=== PATIENT | female | born 1995 | race Caucasian/White ===

== ENCOUNTER 2018-11-28 11:55 | Emergency (ER) | payer OTHER | END 2018-11-28 14:58 | disposition home or self-care (01) | LOC: JERFT 11:55 ==

== ENCOUNTER 2019-01-13 07:57 | Emergency (ER) | payer OTHER ==
[2019-01-13 08:06] VITALS: TEMP 98.5; BMI 22.0
[2019-01-13 08:21] LABS: HCG,QUALITATIVE URINE Positive
[2019-01-13 08:22] LABS: EPI CELLS 2.1 /HPF (0-5/HPF); HYALINE CASTS 2 /lpf (0-8); PH,URINE 6.5 (5.0-8.0); URINE APPEARANCE CLOUDY; URINE BACTERIA 7236.1 /hpf (NEGATIVE); URINE BILIRUBIN NEGATIVE (NEGATIVE); URINE COLOR YELLOW; URINE GLUCOSE (UA) NEGATIVE (NEGATIVE); URINE KETONE NEGATIVE (NEGATIVE); URINE LEUK ESTERASE NEGATIVE (NEGATIVE); URINE NITRITE POSITIVE (NEGATIVE); URINE PROTEIN NEGATIVE (NEGATIVE); URINE RBC 6 /hpf (0-4); URINE UROBILINOGEN 0.2 mg/dL (0.2-1.0); URINE WBC 2 /hpf (0-5)
[2019-01-13] MEDS ORDERED: ONDANSETRON 4 MG/2 ML VIAL IVPUSH ONE (08:31)
[2019-01-13] MEDS ORDERED: SODIUM CHLORIDE 1,000 ML IV STA (08:31)
[2019-01-13] MEDS ORDERED: ONDANSETRON 4 MG/2 ML VIAL ONE (08:35)
[2019-01-13 08:48] VITALS: BP 109/60; PULSE 84
[2019-01-13 08:56] LABS: BASO % 0.8 % (0-2.0); EOS % 2.2 % (0-4.5); HEMATOCRIT 41.5 % (32.4-45.2); HEMOGLOBIN 13.6 GM/dL (10.7-15.3); LYMPH % 38.4 % (8-40); MCH 26.8 pg (25.7-33.7); MCHC 32.9 g/dl (32.0-36.0); MEAN CELL VOLUME 81.5 fl (80-96); MEAN PLT VOLUME 8.2 fl (7.5-11.1); MONO % 6.9 % (3.8-10.2); NEUT % 51.7 % (42.8-82.8); PLATELET COUNT 291 K/MM3 (134-434); RBC 5.09 M/mm3 (3.60-5.2); WHITE BLOOD COUNT 8.2 K/mm3 (4.0-10.0)
--- NOTE | 2019-01-13 09:03 | PDOC ---
History of Present Illness - General Chief Complaint: Lightheaded Stated Complaint: DIZZINESS Time Seen by Provider: 01/13/19 08:07 History Source: Patient Exam Limitations: No Limitations - History of Present Illness Initial Comments: 01/13/19 08:07 23-year-old female presents to ED with complaints of intermittent and dizziness worsen with standing over the past 2 days, nausea or vomiting, and mild dysuria. Patient states LMP was 12/03/2018. Patient denies medical history except for PCO S and denies any recent head injury, travel, illness, fever, or chills Timing/Duration: changing over time Severity: moderate Associated Symptoms: reports: loss of appetite, nausea/vomiting, other Past History - Travel Traveled outside of the country in the last 30 days: No Close contact w/someone who was outside of country & ill: No - Past Medical History Allergies/Adverse Reactions: Allergies Allergy/AdvReac Type Severity Reaction Status Date / Time No Known Allergies Allergy Verified 01/13/19 08:02 Home Medications: Ambulatory Orders Cephalexin [Keflex] 500 mg PO BID #14 capsule 01/13/19 Ondansetron HCl [Zofran] 4 mg PO TID PRN #12 tablet 01/13/19 COPD: No Diabetes: Yes (pre diabetic) - Surgical History Cholecystectomy: Yes - Suicide/Smoking/Psychosocial Hx Smoking History: Never smoked Hx Alcohol Use: No Drug/Substance Use Hx: No Substance Use Type: None Patient Lives Alone: No Lives with/in: spouse/SO Review of Systems - Review of Systems Able to Perform ROS?: Yes Constitutional: Yes: Weakness HEENTM: No: Symptoms Reported Respiratory: No: Symptoms reported Cardiac (ROS): Yes: Lightheadedness ABD/GI: Yes: Nausea, Poor Appetite, Poor Fluid Intake, Vomiting : Yes: Burning. No: Discharge Musculoskeletal: No: Symptoms Reported Integumentary: No: Symptoms Reported Neurological: Yes: Dizziness Endocrine: No: Symptoms Reported Hematologic/Lymphatic: No: Symptoms Reported *Physical Exam - Vital Signs Last Vital Signs Temp Pulse Resp BP Pulse Ox 98.5 F 58 L 16 111/69 99 01/13/19 08:05 01/13/19 08:47 01/13/19 08:05 01/13/19 08:47 01/13/19 08:05 - Physical Exam General Appearance: Yes: Nourished, Appropriately Dressed. No: Apparent Distress HEENT: negative: Pale Conjunctivae Neck: positive: Supple Respiratory/Chest: positive: Lungs Clear, Normal Breath Sounds. negative: Respiratory Distress, Accessory Muscle Use Cardiovascular: positive: Regular Rhythm, Regular Rate. negative: Murmur Gastrointestinal/Abdominal: positive: Soft. negative: Tenderness Extremity: positive: Normal Inspection Integumentary: positive: Normal Color, Warm, Moist Neurologic: positive: Motor Strength 5/5 (ambulatory) ED Treatment Course - LABORATORY CBC & Chemistry Diagram: 01/13/19 08:44 01/13/19 08:44 - ADDITIONAL ORDERS Additional order review: Laboratory Results 01/13/19 08:00 Urine Color Yellow Urine Appearance Cloudy Urine pH 6.5 Ur Specific [place] 1.022 Urine Protein Negative Urine Glucose (UA) Negative Urine Ketones Negative Urine Blood Negative Urine Nitrite Positive H Urine Bilirubin Negative Urine Urobilinogen 0.2 Ur Leukocyte Esterase Negative Urine WBC (Auto) 2 Urine RBC (Auto) 6 Urine Casts (Auto) 2 U Epithel Cells (Auto) 2.1 Urine Bacteria (Auto) 7236.1 Urine HCG, Qual Positive - Medications Given in the ED: ED Medications Discontinued Medications Generic Name Dose Route Start Last Admin Trade Name Freq PRN Reason Stop Dose Admin Ondansetron HCl 4 mg 01/13/19 08:31 01/13/19 08:48 Zofran Injection IVPUSH 01/13/19 08:32 4 mg ONCE ONE Administration Medical Decision Making - Medical Decision Making 01/13/19 08:09 CC: Dizziness worsened with standing, nausea with vomiting for the past 2 days intermittently poor by mouth intake and mild dysuria. LMP 6/4 Exam: Patient found to be orthostatic Plan: Labs, urine, IV fluids and Zofran 01/13/19 09:07 Laboratory Tests 01/13/19 08:00 Urine Nitrite Positive H Ur Leukocyte Esterase Negative Urine WBC (Auto) 2 Urine HCG, Qual Positive Patient ordered for beta ultrasound and we will consider ultrasound once labs have been reviewed 01/13/19 11:33 Laboratory Tests 01/13/19 01/13/19 08:44 08:44 WBC 8.2 Hgb 13.6 Hct 41.5 Plt Count 291 Absolute Neuts (auto) 4.2 Sodium 138 Potassium 5.6 H Chloride 106 Carbon Dioxide 30 Anion Gap 2 L BUN 20.1 H Creatinine 0.9 Est GFR (CKD-EPI)AfAm 105.19 Random Glucose 109 H Calcium 9.8 Magnesium 2.2 Total Bilirubin 0.4 AST 13 L Alkaline Phosphatase 62 Beta HCG, Quant 37.1 Patient went to ultrasound and awaiting results. 01/13/19 11:56 Ultrasound states that thickening endometrium at 1.6 cm identified. There is no sonographic evidence of viable intrauterine gestation. If very early is suspected please correlate with repeat beta hCG and ultrasound is recommended. Patient states feeling much better . *DC/Admit/Observation/Transfer Diagnosis at time of Disposition: UTI (urinary tract infection), as incidental finding - Discharge Dispostion Disposition: HOME Condition at time of disposition: Good - Prescriptions Prescriptions: Cephalexin [Keflex] 500 mg PO BID #14 capsule Ondansetron HCl [Zofran] 4 mg PO TID PRN #12 tablet PRN Reason: Nausea And/Or Vomiting - Referrals - Patient Instructions Printed Discharge Instructions: DI for Urinary Tract Infection (UTI) Additional Instructions: Take antibiotics as prescribed. Please eat small frequent meals and drink plenty of fluids. If symptoms of nausea recur please take Zofran as needed for discomfort. Please follow-up in 4 days for repeat beta hCG and ultrasound either with your EXPELLER OPERATOR or ED. - Post Discharge Activity
[2019-01-13 09:28] LABS: ALBUMIN 4.1 g/dl (3.4-5.0); BILIRUBIN,TOTAL 0.4 mg/dL (0.2-1); BLOOD UREA NITROGEN 20.1 mg/dL (7-18); CALCIUM 9.8 mg/dL (8.5-10.1); CREATININE 0.9 mg/dL (0.55-1.3); MAGNESIUM 2.2 mg/dL (1.8-2.4); POTASSIUM 5.6 mmol/L (3.5-5.1); TOT PROT 8.1 g/dl (6.4-8.2)
== END 2019-01-13 12:26 | disposition home or self-care (01) ==
LOC: JER 07:57
PROC: 3E033GC Introduction of Other Therapeutic Substance into Peripheral Vein, Percutaneous Approach (ICD-10-PCS; principal; 2019-01-13)
DX: O26.891 Other specified pregnancy related conditions, first trimester (principal); O23.41 Unspecified infection of urinary tract in pregnancy, first trimester; Z3A.01 Less than 8 weeks gestation of pregnancy
CPT/HCPCS: 36415; 76817-TC; 80053; 81003; 83735; 84702; 84703; 85025; 87086; 87186; 96374; 99283-25; J7030

== ENCOUNTER 2019-02-13 16:49 | Emergency (ER) | payer OTHER | END 2019-02-13 20:29 | disposition home or self-care (01) | LOC: JER 16:49 ==

== ENCOUNTER 2019-04-15 11:22 | Emergency (ER) | payer OTHER ==
[2019-04-15 11:48] VITALS: BP 120/51; PULSE 84; TEMP 99.2; BMI 29.0
--- NOTE | 2019-04-15 12:14 | PDOC ---
History of Present Illness - General Chief Complaint: Cold Symptoms Stated Complaint: 16WKS/ FEVER Time Seen by Provider: 04/15/19 12:09 - History of Present Illness Initial Comments: 04/15/19 12:14 24-year-old female without comorbidities presents for evaluation of 1 day of fever body aches cough and sore throat Past History - Past Medical History Allergies/Adverse Reactions: Allergies Allergy/AdvReac Type Severity Reaction Status Date / Time No Known Allergies Allergy Verified 04/15/19 11:48 Home Medications: Ambulatory Orders Cephalexin [Keflex] 500 mg PO BID #14 capsule 01/13/19 Ondansetron HCl [Zofran] 4 mg PO TID PRN #12 tablet 01/13/19 Ondansetron HCl [Zofran] 4 mg PO TID PRN #30 tablet 02/13/19 Ranitidine HCl [Zantac] 150 mg PO BID #14 tablet 02/13/19 COPD: No Diabetes: Yes (pre diabetic) - Surgical History Cholecystectomy: Yes - Immunization History Immunization Up to Date: No - Psycho Social/Smoking Cessation Hx Smoking History: Never smoked Hx Alcohol Use: No Drug/Substance Use Hx: No Substance Use Type: None Review of Systems - Review of Systems Constitutional: Yes: Chills, Fever, Malaise, Night Sweats HEENTM: Yes: Throat Pain. No: Throat Swelling, Difficulty Swallowing Respiratory: Yes: Cough Musculoskeletal: Yes: Muscle Pain *Physical Exam - Vital Signs Last Vital Signs Temp Pulse Resp BP Pulse Ox 99.2 F 84 18 120/51 L 98 04/15/19 11:45 04/15/19 11:45 04/15/19 11:45 04/15/19 11:45 04/15/19 11:45 - Physical Exam Comments: 04/15/19 12:14 HEAD: NC/AT EYES: Conjuntiva clear Ears: Canals and TM's normal NOSE: No d/c THROAT: Moist mucous membrances, oral pharanx clear, uvula midline NECK: Supple without adenopathy CARDIAC: S1 S2 LUNGS: CTA Full and Equal breath sounds ABDOMEN: Soft NT ND MS: Full ROM in all joints without edema NEUROLOGIC: No gross sensory or motor deficits, NVID SKIN: Normal color and temperature no lesions or rashes Medical Decision Making - Medical Decision Making 04/15/19 12:51 Flu swab negative most likely viral upper respiratory infection supportive care with Tylenol and Motrin follow-up with PCP Discharge - Discharge Information Problems reviewed: Yes Clinical Impression/Diagnosis: Viral URI with cough Condition: Stable Disposition: HOME - Admission No - Follow up/Referral Referrals: Sierra Moss [Primary Care Provider] - - Patient Discharge Instructions Patient Printed Discharge Instructions: DI for Viral Upper Respiratory Infection -- Adult Additional Instructions: Your flu swab was negative today. Tylenol Motrin for fever. Return to the emergency room for worsening symptoms. Follow-up with your primary care physician in 1 to 2 days without fail for further evaluation and treatment options. - Post Discharge Activity
== END 2019-04-15 12:58 | disposition home or self-care (01) ==
LOC: JERFT 11:22
DX: O26.892 Other specified pregnancy related conditions, second trimester (principal); O98.512 Other viral diseases complicating pregnancy, second trimester; J06.9 Acute upper respiratory infection, unspecified; Z3A.16 16 weeks gestation of pregnancy
CPT/HCPCS: 87804; 99281-25

== ENCOUNTER 2019-05-21 22:51 | Emergency (ER) | payer OTHER ==
[2019-05-21 22:55] VITALS: BMI 29.9
[2019-05-22 00:24] LABS: EPI CELLS 18.6 /HPF (0-5/HPF); HYALINE CASTS 4 /lpf (0-8); PH,URINE >= 9.0 (5.0-8.0); URINE APPEARANCE TURBID; URINE BACTERIA 795.7 /hpf (NEGATIVE); URINE BILIRUBIN NEGATIVE (NEGATIVE); URINE COLOR YELLOW; URINE GLUCOSE (UA) NEGATIVE (NEGATIVE); URINE KETONE NEGATIVE (NEGATIVE); URINE LEUK ESTERASE TRACE (NEGATIVE); URINE NITRITE NEGATIVE (NEGATIVE); URINE PROTEIN NEGATIVE (NEGATIVE); URINE UROBILINOGEN 0.2 mg/dL (0.2-1.0); URINE WBC 16 /hpf (0-5)
--- NOTE | 2019-05-22 00:42 | PDOC ---
History of Present Illness - General Chief Complaint: Cold Symptoms Stated Complaint: FEVER Time Seen by Provider: 05/21/19 23:34 History Source: Patient Exam Limitations: No Limitations - History of Present Illness Initial Comments: 05/22/19 00:37 HISTORY OF PRESENT ILLNESS: Is a 24-year-old primigravida who presents to the emergency department for evaluation of 5 days of fevers, moist cough, sore throat and nasal congestion. Patient reports her was experiencing similar symptoms and they both started with symptoms on Sunday but the has recovered and is no longer exhibiting symptoms while this patient has. Patient reports that she did not get her flu shot earlier this year. Patient denies any chest pain, headaches, shortness of breath. She does endorse myalgias and has had one episode of dysuria today. 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 No recent travel or sick contacts. PAST MEDICAL HISTORY: Denies past medical history SURGICAL HISTORY: Denies ALLERGIES: No known drug allergies REVIEW OF SYSTEMS General/Constitutional: See HPI HEENT: See HPI Cardiovascular: See HPI Respiratory: See HPI Gastrointestinal: Denies nausea, vomiting, diarrhea or constipation. Denies rectal bleeding. Genitourinary: See HPI Musculoskeletal: See HPI Skin and breasts: Denies rash or easy bruising. Neurologic: Denies headache, vertigo, loss of consciousness, or loss of sensation. Psychiatric: Denies depression or anxiety. Endocrine: Denies increased thirst. Denies abnormal weight change. Hematologic/Lymphatic: Denies anemia, easy bleeding, or history of blood clots. Allergic/Immunologic: Denies hives or skin allergy. Denies latex allergy. PHYSICAL EXAM General Appearance: Well-appearing, appropriately dressed. No apparent distress , no intoxication. HEENT: EOMI, PERRLA, normal ENT inspection, normal voice, TMs normal. No conjunctival pallor. No photophobia, scleral icterus. Nasal congestion present. mildly erythematous oropharynx without tonsillar swelling, erythema or exudates present. Neck: Supple. Trachea midline. No tenderness, rigidity, carotid bruit, stridor , lymphadenopathy, or thyromegaly. Respiratory/Chest: Lungs CTAB. No shortness of breath, chest tenderness, respiratory distress, accessory muscle use. No crackles, rales, rhonchi, stridor , wheezing, dullness Cardiovascular: RRR. S1, S2. No JVD, murmur, bradycardia, tachycardia. Vascular Pulses: Dorsalis-Pedis (R): 2+, Dorsalis-Pedis (L): 2+ Gastrointestinal/Abdominal: Normal bowel sounds. Gravid abdomen soft, non- distended. No tenderness or rebound tenderness. No organomegaly, pulsatile mass , guarding, hernia, hepatomegaly, splenomegaly. Lymphatic: No adenopathy, tenderness. Musculoskeletal/Extremities: Normal inspection. FROM of all extremities, normal capillary refill. Pelvis Stable. No CVA tenderness. No tenderness to extremities, pedal edema, swelling, erythema or deformity. Integumentary: Appropriate color, dry, warm. No cyanosis, erythema, jaundice or rash Neurologic: oscillograph technician II-XII intact. Fully oriented, alert. Appropriate mood/affect. Motor strength 5/5. No appreciable EOM palsy, facial droop or sensory deficit. 05/22/19 00:40 Past History - Past Medical History Allergies/Adverse Reactions: Allergies Allergy/AdvReac Type Severity Reaction Status Date / Time No Known Allergies Allergy Verified 05/21/19 22:55 Home Medications: Ambulatory Orders Cephalexin [Keflex] 500 mg PO BID #14 capsule 01/13/19 Ondansetron HCl [Zofran] 4 mg PO TID PRN #12 tablet 01/13/19 Ondansetron HCl [Zofran] 4 mg PO TID PRN #30 tablet 02/13/19 Ranitidine HCl [Zantac] 150 mg PO BID #14 tablet 02/13/19 Cephalexin Monohydrate [Keflex -] 500 mg PO BID #14 capsule 05/22/19 COPD: No Diabetes: Yes (pre diabetic) - Surgical History Cholecystectomy: Yes - Immunization History Immunization Up to Date: No - Psycho Social/Smoking Cessation Hx Smoking History: Never smoked Hx Alcohol Use: No Drug/Substance Use Hx: No Substance Use Type: None *Physical Exam - Vital Signs Last Vital Signs Temp Pulse Resp BP Pulse Ox 99.7 F H 114 H 18 117/70 97 05/21/19 22:53 05/21/19 22:53 05/21/19 22:53 05/21/19 22:53 05/21/19 22:53 ED Treatment Course - ADDITIONAL ORDERS Additional order review: Laboratory Results 05/21/19 23:55 Urine Color Yellow Urine Appearance Turbid Urine pH >= 9.0 H D Ur Specific [place] 1.014 Urine Protein Negative Urine Glucose (UA) Negative Urine Ketones Negative Urine Blood Negative Urine Nitrite Negative Urine Bilirubin Negative Urine Urobilinogen 0.2 Ur Leukocyte Esterase Trace Urine WBC (Auto) 16 Urine Casts (Auto) 4 U Epithel Cells (Auto) 18.6 Urine Bacteria (Auto) 795.7 Medical Decision Making - Medical Decision Making 05/22/19 00:41 A/P: 24-year-old woman with 5 days of upper respiratory type illness and dysuria x1 episode today Although patient is outside the window for treatment of influenza she is currently and has not been immunized this year. I will test for influenza. Urinalysis, urine culture Reassess 05/22/19 00:42 Laboratory Tests 05/21/19 05/21/19 23:55 23:55 Urine Color Yellow Urine Appearance Turbid Urine pH >= 9.0 H D Ur Specific [place] 1.014 Urine Protein Negative Urine Glucose (UA) Negative Urine Ketones Negative Urine Blood Negative Urine Nitrite Negative Urine Bilirubin Negative Urine Urobilinogen 0.2 Ur Leukocyte Esterase Trace Urine WBC (Auto) 16 Urine Casts (Auto) 4 U Epithel Cells (Auto) 18.6 Urine Bacteria (Auto) 795.7 Influenza A (Rapid) Negative Influenza B (Rapid) Negative I will treat patient with Keflex 500 mg orally twice daily for the next 7 days. We will send patient to L&D for monitoring prior to discharge. I discussed the physical exam findings, ancillary test results and final diagnoses with the patient. I answered all of the patient's questions. The patient was satisfied with the care received and felt comfortable with the discharge plan and treatment plan. The patient will call their primary care physician within 24 hours to arrange follow-up and will return to the Emergency Department with any new, persistent or worsening symptoms. Discharge - Discharge Information Problems reviewed: Yes Clinical Impression/Diagnosis: Viral URI with cough Urinary tract infection Qualifiers: Urinary tract infection type: acute cystitis Hematuria presence: without hematuria Qualified Code(s): N30.00 - Acute cystitis without hematuria Condition: Stable Disposition: HOME - Admission No - Additional Discharge Information Prescriptions: Cephalexin Monohydrate [Keflex -] 500 mg PO BID #14 capsule - Follow up/Referral Referrals: Gely Giles CNM [Primary Care Provider] - - Patient Discharge Instructions Additional Instructions: Rest, drink lots of fluids: Teas, water, soups Avoid contact with others until fevers and symptoms resolved Lots of handwashing and good hygiene Continue [id number] medications for symptomatic relief Tylenol for fever and pain Continue all of antibiotics until completed Followup with [facility] in one week for repeat urinalysis/reevaluation Return to emergency department for worsened symptoms, fevers, dehydration - Post Discharge Activity
[2019-05-22 00:47] LABS: URINE RBC 6.4 /hpf (0-4)
[2019-05-22 01:07] VITALS: BP 118/77; PULSE 110; TEMP 99.4
== END 2019-05-22 01:07 | disposition home or self-care (01) ==
LOC: JER 22:51
DX: J06.9 Acute upper respiratory infection, unspecified (principal); R05 Cough; N30.00 Acute cystitis without hematuria
CPT/HCPCS: 81003; 87086; 87804; 99283-25

== ENCOUNTER 2019-07-07 14:02 | Emergency (ER) | payer OTHER ==
--- NOTE | 2019-07-07 14:11 | PDOC ---
Rapid Medical Evaluation Chief Complaint: Labor Assessment Medical Evaluation: Allergies Allergy/AdvReac Type Severity Reaction Status Date / Time No Known Allergies Allergy Verified 05/21/19 22:55 I have performed a brief in-person evaluation of this patient. The patient presents with a chief complaint of: 28 weeks preg, c/o lower abd/ back pressure x 4 days; denies vag bleeding Pertinent physical exam findings: Gravid abdomen, in NAD I have ordered the following: Nothing; patient will sent to L&D for assessment The patient will proceed to the ED for further evaluation. 07/07/19 14:10
[2019-07-07 14:12] VITALS: BMI 30.9
[2019-07-07 15:31] VITALS: BP 121/77; PULSE 102; TEMP 99
--- NOTE | 2019-07-07 16:07 | PN ---
Ante-Partal Exam - Subjective Subjective: Patient feeling cramps, no LOF, no VB, +FM. She reports nasal congestion, pelvic pressure, body aches Vital Signs: Vital Signs Temperature 99.0 F 07/07/19 15:14 Pulse Rate 102 H 07/07/19 15:14 Respiratory Rate 18 07/07/19 15:14 Blood Pressure 121/77 07/07/19 15:14 O2 Sat by Pulse Oximetry (%) 100 07/07/19 14:08 Bleeding: No Headache: No Visual changes: No Right upper quadrant pain: No - Contractions Contractions: No Intensity: Unaware Monitor Mode: External - Exam during Labor Heart Rate: 150 Variability: Moderate Category: I Monitor Accelerations: Present Monitor Decelerations: None Exam: Vaginal Dilatation (cm): 0 Effacement (%): 0 Amniotic Membrane Status: Intact Station: -3 Remarks: posterior cervix - Assessment/Plan Assessment/Plan: 24 y/o G1 @ 28+wks, not in active PTL, nasal congestion, stable vitals, reassuring status. Patient has + Ux early in the and denies taking Abx previously -FLu Swab -UA -PO fluids
[2019-07-07 16:56] LABS: EPI CELLS 25.6 /HPF (0-5/HPF); HYALINE CASTS 8 /lpf (0-8); PH,URINE 7.5 (5.0-8.0); URINE APPEARANCE CLOUDY; URINE BACTERIA 1666.6 /hpf (NEGATIVE); URINE BILIRUBIN NEGATIVE (NEGATIVE); URINE COLOR YELLOW; URINE GLUCOSE (UA) NEGATIVE (NEGATIVE); URINE KETONE NEGATIVE (NEGATIVE); URINE LEUK ESTERASE 1+ (NEGATIVE); URINE NITRITE NEGATIVE (NEGATIVE); URINE PROTEIN TRACE (NEGATIVE); URINE RBC 2 /hpf (0-4); URINE WBC 44 /hpf (0-5)
[2019-07-07 17:16] LABS: URINE CRYSTALS FEW /hpf
--- NOTE | 2019-07-07 17:30 | PN ---
Progress Note (short form) - Note Progress Note: Flu swab is negative and UA reviewed. Stable maternal and reassuring condition. Keflex prescribed and antepartum/PTL precautions previously discussed with patient. -D/C -F/U outpatient -return PRN -Sono tomorrow as scheduled as per patient
== END 2019-07-07 17:57 | disposition home or self-care (01) ==
LOC: JER 14:02
DX: O26.893 Other specified pregnancy related conditions, third trimester (principal); R10.30 Lower abdominal pain, unspecified; Z3A.28 28 weeks gestation of pregnancy
CPT/HCPCS: 81003; 87804; 99281-25

== ENCOUNTER 2020-07-21 16:21 | Emergency (ER) | payer OTHER ==
[2020-07-21 16:38] VITALS: TEMP 98; BMI 27.3
[2020-07-21 18:29] LABS: BASO % 0.5 % (0-2.0); HEMATOCRIT 40.5 % (32.4-45.2); HEMOGLOBIN 13.1 GM/dL (10.7-15.3); LYMPH % 45.1 % (8-40); MCH 26.3 pg (25.7-33.7); MCHC 32.4 g/dl (32.0-36.0); MEAN CELL VOLUME 81.2 fl (80-96); MEAN PLT VOLUME 8.3 fl (7.5-11.1); MONO % 8.3 % (3.8-10.2); NEUT % 44.1 % (42.8-82.8); PLATELET COUNT 277 K/MM3 (134-434); RBC 4.99 M/mm3 (3.60-5.2); RDW 14.7 % (11.6-15.6)
[2020-07-21] MEDS ORDERED: IBUPROFEN 400 MG TABLET (FP) PO ONE ×2 (18:30→18:52)
[2020-07-21 19:25] LABS: EPI CELLS 6 /uL (0-25.1); HCG,QUALITATIVE URINE Negative; HYALINE CASTS 0 /uL (0-3.1); PH,URINE 6.5 (5.0-8.0); URINE APPEARANCE CLEAR; URINE BACTERIA 5281 /uL (0-1359); URINE BILIRUBIN NEGATIVE (NEGATIVE); URINE COLOR YELLOW; URINE GLUCOSE (UA) NEGATIVE (NEGATIVE); URINE KETONE NEGATIVE (NEGATIVE); URINE LEUK ESTERASE NEGATIVE (NEGATIVE); URINE NITRITE POSITIVE (NEGATIVE); URINE PROTEIN NEGATIVE (NEGATIVE); URINE RBC 11 /uL (0-23.9); URINE UROBILINOGEN 0.2 mg/dL (0.2-1.0); URINE WBC 10 /uL (0-25.8)
[2020-07-21 20:08] LABS: POTASSIUM 4.6 mmol/L (3.5-5.1)
[2020-07-21 20:11] LABS: CALCIUM 9.2 mg/dL (8.5-10.1)
[2020-07-21 20:12] LABS: BLOOD UREA NITROGEN 14.7 mg/dL (7-18)
[2020-07-21 20:15] LABS: CREATININE 0.7 mg/dL (0.55-1.3)
[2020-07-21 20:17] LABS: BILIRUBIN,TOTAL 0.6 mg/dL (0.2-1); TOT PROT 7.6 g/dl (6.4-8.2)
[2020-07-21 21:04] VITALS: BP 108/62; PULSE 57
== END 2020-07-21 20:45 | disposition home or self-care (01) ==
LOC: JER 16:21
DX: N93.9 Abnormal uterine and vaginal bleeding, unspecified (principal)
CPT/HCPCS: 36415; 80053; 81003; 84703; 85025; 87086; 87186; 99283-25

== ENCOUNTER 2020-09-02 12:26 | Emergency (ER) | payer OTHER ==
[2020-09-02 12:34] VITALS: BP 113/66; PULSE 71; TEMP 99; BMI 31.1
[2020-09-02 14:05] LABS: PH,URINE 5.5 (5.0-8.0); URINE APPEARANCE CLEAR; URINE BILIRUBIN NEGATIVE (NEGATIVE); URINE COLOR YELLOW; URINE GLUCOSE (UA) NEGATIVE (NEGATIVE); URINE KETONE NEGATIVE (NEGATIVE); URINE LEUK ESTERASE NEGATIVE (NEGATIVE); URINE NITRITE NEGATIVE (NEGATIVE); URINE PROTEIN NEGATIVE (NEGATIVE); URINE UROBILINOGEN 0.2 mg/dL (0.2-1.0)
== END 2020-09-02 14:49 | disposition home or self-care (01) ==
LOC: JERFT 12:26 → JER 12:26 → JERFT 14:49
DX: R11.0 Nausea (principal)
CPT/HCPCS: 36415; 81003; 84702; 87086; 99283-25; C9803; U0003

== ENCOUNTER 2020-12-05 21:05 | Emergency (ER) | payer OTHER ==
[2020-12-05 21:43] VITALS: BMI 32.1
[2020-12-06 00:19] VITALS: BP 120/75; PULSE 75; TEMP 97.8
== END 2020-12-06 00:11 | disposition home or self-care (01) ==
LOC: JER 21:05
DX: H60.92 Unspecified otitis externa, left ear (principal)
CPT/HCPCS: 99282-25

== ENCOUNTER 2022-06-24 21:38 | Emergency (ER) | payer OTHER ==
[2022-06-24 21:48] VITALS: BP 114/75; PULSE 95; RESP 20; BMI 33.6
[2022-06-24 22:19] VITALS: TEMP 99.8
[2022-06-24] MEDS ORDERED: ACETAMINOPHEN 500 MG TABLET (FP) PO ONE (22:19)
[2022-06-24] MEDS ORDERED: ACETAMINOPHEN 500 MG TABLET (FP) ONE (22:23)
== END 2022-06-24 22:56 | disposition home or self-care (01) ==
LOC: JERFT 21:38
DX: U07.1 COVID-19 (principal)
CPT/HCPCS: 0241U-QW; 93005; 93010; 99284-25

== ENCOUNTER 2023-07-18 09:21 | Emergency (ER) | payer OTHER ==
[2023-07-18 09:27] VITALS: BMI 34.0
[2023-07-18] MEDS ORDERED: KETOROLAC TROMETHAMINE 30 MG/1 ML VIAL IM ONE (09:49)
[2023-07-18] MEDS ORDERED: KETOROLAC TROMETHAMINE 30 MG/1 ML VIAL ONE (09:52)
[2023-07-18] MEDS ORDERED: ACETAMINOPHEN 500 MG TABLET (FP) PO ONE (09:55)
[2023-07-18] MEDS ORDERED: ONDANSETRON *ODT* 4 MG TABLET ONE (09:59)
[2023-07-18] MEDS ORDERED: ACETAMINOPHEN 500 MG TABLET (FP) ONE (09:59)
[2023-07-18] MEDS ORDERED: ONDANSETRON *ODT* 4 MG TABLET SL ONE (09:59)
[2023-07-18 11:31] VITALS: BP 103/65; PULSE 95; RESP 20; TEMP 99.8
== END 2023-07-18 11:53 | disposition home or self-care (01) ==
LOC: JERFT 09:21
PROC: 3E0233Z Introduction of Anti-inflammatory into Muscle, Percutaneous Approach (ICD-10-PCS; principal; 2023-07-18)
DX: R05.9 Cough, unspecified (principal); R11.0 Nausea; R50.9 Fever, unspecified; R63.0 Anorexia; J10.1 Influenza due to other identified influenza virus with other respiratory manifestations; Z20.822 Contact with and (suspected) exposure to COVID-19
CPT/HCPCS: 0241U-QW; 71046-TC-FY; 99284-25; Q0162

== ENCOUNTER 2023-09-11 15:41 | Emergency (ER) | payer OTHER ==
[2023-09-11 15:53] VITALS: RESP 18; BMI 33.6
[2023-09-11 17:18] LABS: BASO % 0.7 % (0-2.0); EOS % 2.3 % (0-4.5); HEMATOCRIT 39.6 % (32.4-45.2); HEMOGLOBIN 12.7 GM/dL (10.7-15.3); LYMPH % 38.7 % (8-40); MCH 26.4 pg (25.7-33.7); MCHC 32.1 g/dl (32.0-36.0); MEAN CELL VOLUME 82.4 fl (80-96); MEAN PLT VOLUME 8.3 fl (7.5-11.1); MONO % 7.3 % (3.8-10.2); PLATELET COUNT 315 10^3/uL (134-434); RBC 4.81 M/mm3 (3.60-5.2); RDW 14.6 % (11.6-15.6); WHITE BLOOD COUNT 8.7 K/mm3 (4.0-10.0)
[2023-09-11 17:44] LABS: CHLORIDE 108 mmol/L (98-107); SODIUM 141 mmol/L (136-145)
[2023-09-11 17:46] LABS: ALBUMIN 3.6 g/dl (3.4-5.0); ANION GAP 6 mmol/L (4-13); BLOOD UREA NITROGEN 21.4 mg/dL (7-18); CO2 28 mmol/L (21-32); GLUCOSE,RANDOM 112 mg/dL (74-106)
[2023-09-11 17:49] LABS: SGOT/AST 16 U/L (15-37); SGPT/ALT 32 U/L (13-61)
[2023-09-11 17:52] LABS: ALK PHOS 58 U/L (45-117); CREATININE 0.9 mg/dL (0.55-1.3)
[2023-09-11 17:55] LABS: BILIRUBIN,TOTAL 0.5 mg/dL (0.2-1)
[2023-09-11] MEDS ORDERED: KETOROLAC TROMETHAMINE 30 MG/1 ML VIAL ONE (18:07)
[2023-09-11] MEDS: KETOROLAC TROMETHAMINE 30 MG/1 ML VIAL IVPUSH ONE (18:18)
[2023-09-11] MEDS: SODIUM CHLORIDE 0.9% 500 ML INFUS.BAG IV ONE (18:18)
[2023-09-11 18:34] LABS: EPI CELLS 10 /uL (0-25.1); HCG,QUALITATIVE URINE Negative; HYALINE CASTS 1 /uL (0-3.1); PH,URINE 5.5 (5.0-8.0); URINE APPEARANCE CLEAR; URINE BACTERIA 1 /uL (0-1359); URINE BILIRUBIN NEGATIVE (NEGATIVE); URINE COLOR YELLOW; URINE GLUCOSE (UA) NEGATIVE (NEGATIVE); URINE KETONE TRACE (NEGATIVE); URINE LEUK ESTERASE NEGATIVE (NEGATIVE); URINE NITRITE NEGATIVE (NEGATIVE); URINE PROTEIN TRACE (NEGATIVE); URINE RBC 1549 /uL (0-23.9); URINE WBC 5 /uL (0-25.8)
[2023-09-11 20:35] VITALS: BP 113/79; PULSE 69; TEMP 97.8
== END 2023-09-11 21:01 | disposition home or self-care (01) ==
LOC: JER 15:41
PROC: 3E0333Z Introduction of Anti-inflammatory into Peripheral Vein, Percutaneous Approach (ICD-10-PCS; principal; 2023-09-11)
DX: N92.1 Excessive and frequent menstruation with irregular cycle (principal); N93.9 Abnormal uterine and vaginal bleeding, unspecified; R10.30 Lower abdominal pain, unspecified; R42 Dizziness and giddiness; R53.83 Other fatigue
CPT/HCPCS: 36415; 76830-TC; 80053; 81003; 84702; 84703; 85025; 86850; 86900; 86901; 87086; 96374; 99284-25